=== PATIENT | female | born 1945 | race Caucasian/White ===

== ENCOUNTER 2019-07-05 08:56 | Emergency (ER) | payer OTHER ==
[~2019-07-05] VITALS: Ht 152.4 cm; Wt 56.7 kg
[2019-07-05] MEDS ORDERED: TOPROL XL25 M1 (09:02)
[2019-07-05] MEDS ORDERED: ZETIA10 MG (09:03)
[2019-07-05] MEDS ORDERED: CRESTOR10 MG (09:03)
== END 2019-07-05 15:20 | disposition home or self-care (01) ==
LOC: ER 08:56
DX: J45.909 Unspecified asthma, uncomplicated (principal)

== ENCOUNTER 2019-08-12 08:25 | Emergency (ER) | payer OTHER ==
[~2019-08-12] VITALS: Ht 157.5 cm; Wt 68.0 kg
[~2019-08-12 08:25] MED LIST: CRESTOR10 MG; TOPROL XL25 M1; ZETIA10 MG
== END 2019-08-12 09:16 | disposition home or self-care (01) ==
LOC: ER 08:25
DX: M25.512 Pain in left shoulder (principal)

== ENCOUNTER 2019-08-15 10:58 | Emergency (ER) | payer OTHER ==
[~2019-08-15] VITALS: Ht 152.4 cm; Wt 56.7 kg
== END 2019-08-15 13:13 | disposition home or self-care (01) ==
LOC: ER 10:58
DX: M75.51 Bursitis of right shoulder (principal)

== ENCOUNTER → 2021-04-21 | Emergency (ER) | payer OTHER ==
[~2021-04-21] VITALS: Ht 152.4 cm; Wt 58.1 kg
[~2021-04-21] MED LIST changes: +ATIVAN0.5 M1; +CANDESARTAN CILE8 MG
== END | disposition left against medical advice (07) ==
LOC: ER 14:44
DX: Z53.20 Procedure and treatment not carried out because of patient's decision for unspecified reasons (principal)

== ENCOUNTER → 2021-04-23 07:34 | Outpatient (CLI) | payer OTHER | END | disposition home or self-care (01) | LOC: LAB 07:34 | PROVIDERS: ATTEND Internal Medicine Cardiovascular Disease | DX: I10 Essential (primary) hypertension (principal); E11.9 Type 2 diabetes mellitus without complications; E03.8 Other specified hypothyroidism; E78.2 Mixed hyperlipidemia; Z12.11 Encounter for screening for malignant neoplasm of colon; E55.9 Vitamin D deficiency, unspecified ==

== ENCOUNTER 2021-04-23 09:11 | Outpatient (CLI) | payer OTHER | END 2021-04-23 09:12 | disposition home or self-care (01) | LOC: NUCLEAR 09:11 | PROVIDERS: ATTEND Internal Medicine Cardiovascular Disease | DX: M81.0 Age-related osteoporosis without current pathological fracture (principal); E55.9 Vitamin D deficiency, unspecified ==

== ENCOUNTER 2021-08-22 12:52 | Outpatient (CLI) | payer OTHER | END 2021-08-22 13:09 | disposition home or self-care (01) | LOC: MRI 12:52 | PROVIDERS: ATTEND Anesthesiology | DX: M47.896 Other spondylosis, lumbar region (principal); M54.50 Low back pain, unspecified; M54.17 Radiculopathy, lumbosacral region | CPT/HCPCS: 72148 ==

== ENCOUNTER 2021-08-28 12:05 | Emergency (ER) | payer OTHER ==
[~2021-08-28] VITALS: Ht 152.4 cm; Wt 56.7 kg
[2021-08-28] MEDS ORDERED: TEMAZEPAM15 MG PO (12:24)
== END 2021-08-28 18:15 | disposition home or self-care (01) ==
LOC: ER 12:05
DX: N39.0 Urinary tract infection, site not specified (principal); Z88.6 Allergy status to analgesic agent; Z91.010 Allergy to peanuts; F41.9 Anxiety disorder, unspecified

== ENCOUNTER 2023-08-15 10:55 | Emergency (ER) | payer OTHER ==
[~2023-08-15] VITALS: Ht 152.4 cm; Wt 56.7 kg
[~2023-08-15 10:55] MED LIST changes: +TEMAZEPAM15 MG PO
[2023-08-15] MEDS ORDERED: QUETIAPINE FUM400 M1 (11:04)
[2023-08-15] MEDS ORDERED: ESCITALOPRA5 MG/5 ML (11:05)
[2023-08-15] MEDS ORDERED: hydrOXYzine PAMOATE 50 MG CAPSULE PO STA (12:23)
[2023-08-15] MEDS ORDERED: FAMOTIDINE/PF 20 MG/2 ML VIAL IV PUSH STA (12:24)
== END 2023-08-15 14:02 | disposition home or self-care (01) ==
LOC: ER 10:55
DX: F41.8 Other specified anxiety disorders (principal); Z88.6 Allergy status to analgesic agent; Z91.018 Allergy to other foods
CPT/HCPCS: 96365; 99282; J3490

== ENCOUNTER 2024-03-07 09:39 | Emergency (ER) | payer OTHER ==
[~2024-03-07] VITALS: Ht 149.9 cm; Wt 54.4 kg
[~2024-03-07 09:39] MED LIST changes: +ESCITALOPRA5 MG/5 ML; +QUETIAPINE FUM400 M1
[2024-03-07] MEDS ORDERED: hydrOXYzine PAMOATE 50 MG CAPSULE PO STA (10:12)
[2024-03-07] MEDS ORDERED: FAMOtidine 10 MG/ML (4ML VIAL) IV STA (10:13)
[2024-03-07] MEDS ORDERED: METOCLOPRAMIDE HCL 10 MG in 0.9 % SODIUM CHLORIDE 50 ML IV ONE (10:15)
[2024-03-07 11:00] LABS: PH,URINE 7.5 (5.0-8.0); URINE APPEARANCE Clear; URINE BILIRRUBIN Negative (NEGATIVE); URINE BLOOD Negative; URINE GLUCOSE Negative (NEGATIVE); URINE KETONE Negative (NEGATIVE); URINE LEUKOCYTE Trace; URINE NITRATE Positive; URINE PROTEIN Negative (NEGATIVE)
[2024-03-07 11:02] LABS: HEMATOCRIT 36.7 % (36.0-45.00); HEMOGLOBIN 12.7 g/dL (12.0-15.00); MEAN CELL VOLUME 92.4 fL (80.00-100.00); MEAN CORPUSCULAR HEMOGLOBIN 31.9 pg (27.00-32.0); MEAN CORPUSCULAR HGB CONC 34.5 g/dl (32.0-36.0); PLATELET COUNT 283 K/uL (150-450); RED BLOOD COUNT 3.97 M/uL (4.00-6.00); RED CELL DISTRIBUTION WIDTH 14.4 % (11.5-14.5)
[2024-03-07 11:08] LABS: URINE BACTERIA 168.7 uL (0.0-1933); URINE EPITHELIAL CELLS 6.7 uL (0.0-38.8); URINE RBC 3.8 uL (0.0-20.8)
[2024-03-07 11:19] LABS: URINE CAST 0.15 uL (0.0-1.40); URINE COLOR ORANGE; URINE WBC 1.3 uL (0.0-23.2)
[2024-03-07 11:34] LABS: CALCIUM 9.6 mg/dL (8.5-10.1); CREATININE SERUM 0.88 mg/dL (0.55-1.02); GFR 61.83; POTASSIUM 4.01 mEq/L (3.5-5.1)
== END 2024-03-07 14:52 | disposition home or self-care (01) ==
LOC: ER 09:41
PROVIDERS: General Practice
DX: R10.13 Epigastric pain (principal); Z91.018 Allergy to other foods; Z88.6 Allergy status to analgesic agent; F41.8 Other specified anxiety disorders; I10 Essential (primary) hypertension; N39.0 Urinary tract infection, site not specified; K76.0 Fatty (change of) liver, not elsewhere classified
CPT/HCPCS: 76700; 96365; 99284; J2765; J3490